=== PATIENT | male | born 1945 | race Caucasian/White ===

== ENCOUNTER → 2018-06-13 | Outpatient (CLI) | payer OTHER ==
[2015-11-11 10:17] VITALS: BP 125/75
[~2018-06-13] MED LIST: IBUP-1027 PO; TAMS0.4C2 PO
--- NOTE | 2018-06-13 09:54 | KCIC ---
CLINICAL HISTORY: lower abdominal tenderness, leukocytosis COMPARISON: None available. TECHNIQUE: Ultrasound examination of the bilateral kidneys and urinary bladder was performed. FINDINGS: The right kidney measures 10.1 cm in bipolar length. The renal cortex is normal in thickness. Renal echogenicity is normal. A 2.5 x 2.4 cm cystic structure is seen in the right upper pole with thin internal septation mild irregularity of the wall. There is no evidence for hydronephrosis, shadowing renal calculus or focal abnormality . The left kidney measures 10.7 cm in bipolar length. Left kidney is in general poorly visualized due to overlying bowel gas and poor sonographic window. Within these constraints: The renal cortex is normal in thickness. Renal echogenicity is normal. There is no evidence for hydronephrosis, shadowing renal calculus or focal abnormality. Bladder wall is thickened and nodular/irregular in contour. This can be seen with chronic urinary retention. Bilateral ureteral jets are seen. The prostate measures 3.5 x 3.7 x 4.6 cm for a prostatic volume of 30.3 cm^3. Prevoid bladder volume measures 359.2 mL. Post void bladder volume measures 362 mL. IMPRESSION: 1. Thickening and irregularity of the bladder wall likely from chronic urinary retention. 2. Pre and post void bladder volumes are essentially unchanged suggesting urinary retention. 3. Right upper pole renal cystic lesion is mildly complex. Consider short interval follow-up to establish gdvuovule-2-3 months. Electronically signed by: Usman Jacques MD (06/13/2018 9:50 AM) [id number]
== END | disposition home or self-care (01) ==
LOC: KCIC US 07:41
PROVIDERS: ATTEND Internal Medicine Nephrology
DX: N18.3 Chronic kidney disease, stage 3 (moderate) (principal); N28.89 Other specified disorders of kidney and ureter
CPT/HCPCS: 76770

== ENCOUNTER → 2019-01-20 | Outpatient (CLI) | payer MEDICARE ==
[2015-11-11 10:17] VITALS: BP 125/75
--- NOTE | 2019-01-20 16:50 | KCIC ---
RENAL COMPLETE BILATERAL: 01/20/2019 3:45 PM Indication: 73 years old Male. Benign prostate hyperplasia Comparison: Renal ultrasound 06/13/2018. FINDINGS: Sonographic evaluation the kidneys is performed utilizing grayscale and color Doppler. Right kidney: Size: 9.0 x 5.2 x 5.8cm. Collecting System: No hydronephrosis. No renal calculi detected. Parenchyma: Normal echotexture and morphology. There is a cyst in the midpole the right kidney measuring 2.8 x 2.4 x 3.1 cm with internal echoes and thin septations. A definite mural nodule is now visualized although the margin appears mildly lobular. Findings are suggestive of a Bosniak 2F cyst. Left kidney: Size: cm. Collecting System: No hydronephrosis. No renal calculi detected. Parenchyma: Normal echotexture and morphology. No focal contour deforming renal mass. Urinary bladder: Lateral bladder diverticulum is noted. Trabeculated pattern of the bladder wall. Bilateral urine jets are visualized. Prostate gland measures 3.7 x 3.5 x 4.6 cm compatible with a volume of 31 cc. Prevoid: 154 cc Postvoid: 122 cc Aorta and IVC are obscured. IMPRESSION: Bilateral renal atrophy may be age-appropriate. No obstructive uropathy. 2.8 x 2.4 x 3.1 cm cyst in the midpole the right kidney with thin septations and lobulated contour. Consideration may be given for a six-month follow-up renal ultrasound assess stability. Findings appear similar compared to prior examination from 06/13/2018. Trabeculated bladder wall may reflect chronic outlet obstruction. Post void residual 122 cc. Prostate gland measures 3.7 x 3.5 x 4.6 cm compatible with a volume of 31 cc. Electronically signed by: Mai Bowser MD (01/20/2019 4:47 PM) [id number]
== END | disposition home or self-care (01) ==
LOC: KCIC US 15:28
PROVIDERS: ATTEND Urology
DX: N40.1 Benign prostatic hyperplasia with lower urinary tract symptoms (principal); N32.3 Diverticulum of bladder
CPT/HCPCS: 76770

== ENCOUNTER → 2019-07-22 | Outpatient (CLI) | payer MEDICARE ==
[2015-11-11 10:17] VITALS: BP 125/75
--- NOTE | 2019-07-22 09:56 | KCIC ---
Examination: RENAL COMPLETE BILATERAL History: Abnormal renal cyst. Comparison/Correlation: 01/20/2019 renal ultrasound exam Findings: Renal ultrasound examination was performed. Right kidney measures 9.1 cm x 4.5 cm x 5 7. Left kidney measures 10 cm x 2.6 x 5 cm. At the superior pole, there is a right renal cyst measuring 2.37 x 2.8 cm x 2.3 cm. It is somewhat lobulated in contour. No solid components identified. Internal echoes are suggested. No hydronephrosis. Renal contours and echotexture are unremarkable. Urinary bladder is decompressed and very trabeculated in appearance. Impression: No significant change in the left renal cyst. Interval follow-up in 1 year to assess stability is recommended. No hydronephrosis. Electronically signed by: Alejandro Hopkins MD (07/22/2019 9:53 AM) [id number]
== END | disposition home or self-care (01) ==
LOC: KCIC US 08:44
PROVIDERS: ATTEND Urology
DX: N28.1 Cyst of kidney, acquired (principal)
CPT/HCPCS: 76770

== ENCOUNTER → 2020-08-03 | Outpatient (CLI) | payer MEDICARE ==
[2015-11-11 10:17] VITALS: BP 125/75
--- NOTE | 2020-08-03 12:55 | KCIC ---
EXAM: Renal sonogram. HISTORY: Renal cyst. TECHNIQUE: Sonographic imaging of the kidneys and bladder was performed. COMPARISON: 07/22/2019. FINDINGS: The right kidney measures 8.4 cm [id number] and the left kidney measures 8.4 cm pole-to-p ole. There is a 2.4 cm simple appearing right renal cyst. There is no hydronephrosis. There is irregu lar bladder wall trabecular thickening. The ureteral jets are both seen. The post void bladder volume is 132 cc. The prevoid bladder volume is 280 cc. IMPRESSION: 1. Bilateral renal atrophy. 2. Stable 2.4 cm right renal cyst. Follow up is not routinely recommended for simple cysts. 3. Bladder wall trabecular thickening. This can be seen with chronic outlet obstruction. 4. Post void bladder residual of 132 cc. Electronically signed by: Mayte Lewis MD (08/03/2020 12:53 PM) [id number]
== END ==
LOC: KCIC US 12:18
PROVIDERS: ATTEND Urology
DX: N26.1 Atrophy of kidney (terminal) (principal); N28.1 Cyst of kidney, acquired
CPT/HCPCS: 76770